=== PATIENT | male | born 1945 | race Caucasian/White ===

== ENCOUNTER 2016-09-19 16:17 | Emergency (ER) | payer MEDICARE, OTHER ==
--- NOTE | ~2016-09-19 | ER ---
[facility]GE[facility] 71 Y [address] ROOM: [place] [id number] LOCATION: [facility] ADMIT DATE: 09/19/2016 ER/Outpatient Report DISCHARGE DATE: FAMILY PHYSICIAN: Guero Graf MD ATTENDING PHYSICIAN: Armani Moreland Time of Arrival: 1631 hours. Time of Evaluation: 1631 hours. CHIEF COMPLAINT: Right lower quadrant abdominal pain. HISTORY OF PRESENT ILLNESS: The patient states around noon, he had a sudden onset of right lower quadrant abdominal pain. No other associated symptoms. He has not been nauseated, has not vomited. He had a small bowel movement at noon. He has not had diarrhea. He has not felt feverish or chills. He has been urinating without difficulty. He has not noticed any blood in his urine. He describes the pain as being sharp, constant. ALLERGIES: PENICILLIN, LEVAQUIN, PERCOCET. CURRENT MEDICATIONS: On his chart and reviewed by me. PAST MEDICAL HISTORY: Diabetes, rheumatoid arthritis, diverticulitis, kidney stones. PAST SURGICAL HISTORY: Coronary artery bypass graft in 2012, total hip surgery, total shoulder surgeries. SOCIAL HISTORY: He lives in [place] with his . Doctors with Dr. Guero Graf and Dr. Lara and Dr. Roberson here in [place]. Denies use of tobacco, drugs, or alcohol. REVIEW OF SYSTEMS: All negative other than those mentioned in the HPI. PHYSICAL EXAMINATION: VITAL SIGNS: He weighs 81 kg, blood pressure is 153/81, pulse is 70, respirations 20, temperature of 98.6 tympanic, O2 saturation is 97% on room air. PATIENT'S NAME: CARLIE WATT [facility] AGE: 71 Y [address] ROOM: [place] [address] LOCATION: ED ADMIT DATE: 09/19/2016 ER/Outpatient Report DISCHARGE DATE: FAMILY PHYSICIAN: Guero Graf MD ATTENDING PHYSICIAN: Armani Moreland GENERAL: He is awake, alert, and oriented x4. SKIN: [place], warm, and dry. RESPIRATIONS: Even and nonlabored. Lung sounds are clear throughout. HEART: Regular rate and rhythm. ABDOMEN: Soft and nondistended. Bowel sounds are present. He is very tender to palpate in the right lower quadrant area. EMERGENCY DEPARTMENT COURSE: Saline lock was initiated. The patient was given Toradol 15 mg IV. LABORATORY DATA AND X-RAYS: Lab work was drawn. CBC shows a white count of 12.2. Chem panel is within normal limits. Clean-catch UA is negative for leukocytes and nitrites, white blood cell count was 0-2, bacteria was few. CT scan was completed. Radiologist reports no acute findings. The patient states that the Toradol did help calm the pain down. IMPRESSION: Abdominal pain. PLAN: We will allow the patient to go home. Rest. Fluids. Discussed easy to digest diet with him. Recommended no milk. If his symptoms persist or worsen, he should follow up with his primary provider or return to the ER in the next 2 to 3 days. He and his verbalized understanding. LORRI RIVERA APRN FOR MD SAUNDRA BRANNON/branden /[id number] d: 09/19/[id number] t: 09/29/161932, OUTPATIENT REPORT
[~2016-09-19 16:17] MED LIST: ADVIL PM CAPLE1 EACH PO; ADVIL200 MG PO; ASPIRIN LO-DOSE81 MG PO; BISOPROLOL FUMAR5 MG PO; COLACE100 MG PO; DELTASONE5 MG PO; FLOMAX0.4 MG PO; FOLIC ACID1 MG PO; GLUCOPHAGE500 MG PO; I-CAPS WITH LU1 EACH PO; KEFLEX250 MG PO; LANTUS (IN100 UNIT/M SUB-Q; LEVEMIR100 UNIT/1 SUB-Q; METHOTREXATE2.5 MG PO; MUCINEX600 MG PO; MULTI VITAMIN1 EACH PO; OCUVITE EYE +1 EACH PO; OXYBUTYNIN CHLOR5 M1 PO; PRAVACHOL40 MG PO; PRILOSEC20 MG PO; Z-PAK250 MG PO; ZYLOPRIM300 MG PO
[2016-09-19 16:43] LABS: BILIRUBIN URINE NEGATIVE (NEGATIVE); BLOOD URINE 10 /UL (NEGATIVE); COLOR URINE YELLOW (YELLOW); GLUCOSE URINE 50 mg/dL (NEGATIVE); KETONE URINE NEGATIVE (NEGATIVE); LEUKOCYTES URINE NEGATIVE /UL (NEGATIVE); NITRITE URINE NEGATIVE (NEGATIVE); PROTEIN URINE 15 mg/dL (NEGATIVE); SPEC GRAVITY URINE 1.015 (1.003-1.035); TURBIDITY URINE CLEAR (CLEAR); UROBILINOGEN URINE 1 mg/dL (NORMAL)
[2016-09-19 17:02] LABS: BACTERIA URINE FEW (NEGATIVE); EPITHELIAL URINE 0-2 #/HPF (NEGATIVE); RBC URINE 0-2 #/HPF (NEGATIVE); WBC URINE 0-2 #/HPF (NEGATIVE)
[2016-09-19 17:15] LABS: BASOPHIL # 0.1 K/uL (0.0-0.2); BASOPHIL % 0.6 %; EOSINOPHIL # 0.2 K/uL (0.0-0.5); HEMATOCRIT 41.3 % (37.0-53.0); HEMOGLOBIN 14.1 g/dL (11.0-16.0); IMMATURE GRANULOCYTE # 0.5 K/uL (0.0-0.3); LYMPHOCYTE # 1.8 K/uL (0.8-4.0); LYMPHOCYTE % 14.9 %; MCHC 34.1 gm/dL (32.0-36.5); MCV 96.7 fl (83.0-98.0); NEUTROPHIL # (ANC) 8.6 K/uL (1.4-9.0); NEUTROPHIL % 70.5 %; NRBC % 0 /100WBC (0-0.00); PLATELET COUNT 209 K/uL (150-450); RBC 4.27 M/uL (3.50-5.50); RDW-CV 14.1 % (11.9-14.6); WBC 12.2 K/uL (4.0-11.0)
[2016-09-19 17:31] LABS: ALBUMIN 3.3 gm/dL (3.5-5.0); ALK PHOS 119 IU/L (33-138); ALT 27 IU/L (12-78); ANION GAP 14.8 (10.0-19.0); AST 18 IU/L (10-40); BLOOD UREA NITROGEN 19 mg/dL (6-24); CALCIUM 9.1 mg/dL (8.5-10.5); CHLORIDE 105 mMol/L (96-110); CO2 24 mMol/L (22-32); POTASSIUM 3.8 mMol/L (3.7-5.1); SODIUM 140 mMol/L (135-145); TOTAL BILIRUBIN 0.6 mg/dL (0.0-1.5); TOTAL PROTEIN 7.2 g/dL (6.0-8.4)
[2016-09-19 17:32] LABS: ESTIMATED GFR (MDRD EQUATION) > 60
== END 2016-09-19 18:24 | disposition disaster alternative care site (69) ==
LOC: GMED 16:17
PROVIDERS: Emergency Medicine; Nurse Practitioner Family
DX: R10.31 Right lower quadrant pain (principal); M06.9 Rheumatoid arthritis, unspecified; E11.9 Type 2 diabetes mellitus without complications; Z79.82 Long term (current) use of aspirin; Z79.84 Long term (current) use of oral hypoglycemic drugs; Z79.899 Other long term (current) drug therapy; Z88.0 Allergy status to penicillin; Z88.1 Allergy status to other antibiotic agents; Z88.5 Allergy status to narcotic agent; Z87.442 Personal history of urinary calculi; Z95.1 Presence of aortocoronary bypass graft; Z96.649 Presence of unspecified artificial hip joint; Z98.890 Other specified postprocedural states
CPT/HCPCS: J1885

== ENCOUNTER → 2016-12-23 | Outpatient (CLI) | payer MEDICARE, OTHER | END | disposition disaster alternative care site (69) | LOC: GRAD 13:34 | DX: J84.10 Pulmonary fibrosis, unspecified (principal); R91.8 Other nonspecific abnormal finding of lung field ==